=== PATIENT | male | born 1960 | race Two or more races ===

== ENCOUNTER 2020-07-09 06:12 | Day surgery (SDC) | payer BC ==
[~2020-07-09] VITALS: Ht 175.3 cm; Wt 81.6 kg
[2020-07-09] VITALS (8 sets, daily range): BP systolic 114–139; BP diastolic 71–85
[~2020-07-09 06:12] MED LIST: ASPIRIN81 MG ORAL; LIPITOR20 MG ORAL
--- NOTE | 2020-07-09 06:59 | Anethesia Preoperative Eval ---
Anesthesia Pre-op PMH/ROS General Date of Evaluation: Jul 09, 2020 Time of Evaluation: 06:58 Anesthesiologist: jeri ASA Score: ASA 2 Mallampati Score Class I : Soft palate, uvula, fauces, pillars visible Class II: Soft palate, uvula, fauces visible Class III: Soft palate, base of uvula visible Class IV: Only hard plate visible Mallampati Classification: Class II Surgeon: do Diagnosis: colon screening Surgical Procedure: colonoscopy Anesthesia History: none Social History: smoking - nonsmoker Family History: no anesthesia problems Allergies: Coded Allergies: No Known Allergies (Unverified , 07/02/20) Medications: see eMAR Patient NPO?: Yes Past Medical History Cardiovascular: Reports: other - hypercholesterolemia Anesthesia Pre-op Phys. Exam Physician Exam Last Vital Signs Date Time Temp Pulse Resp B/P (MAP) Pulse Ox O2 Delivery O2 Flow Rate FiO2 07/09/20 06:53 Room Air 07/09/20 06:52 97.0 85 17 139/85 96 Constitutional: NAD Neurologic: CN 2-12 intact Cardiovascular: RRR Respiratory: CTA Gastrointestinal: S/NT/ND Airway Exam Mallampati Score: Class II MO: limited Neck: flexible TMD: 2fb ROM: limited Anesthesia Pre-op A/P Labs Microbiology Date/Time Source Procedure Growth Status 07/09/20 06:30 Nasopharynx SARS-CoV-2 RdRp Gene Assay - Final Complete Studies Pre-op Studies: EKG - nsr Risk Assessment & Plan Assessment: asa2 Plan: mac Status Change Before Surgery: No Pre-Antibiotics Drug: Mary Reagan MD Jul 09, 2020 06:59
[2020-07-09] MEDS ORDERED: Midazolam 2mg/2ml Inj IVP PRN (07:00)
[2020-07-09] MEDS ORDERED: LR 1000ml 1,000 ML IVLG SCH (07:00)
[2020-07-09] MEDS ORDERED: fentaNYL 100 mcg/2 mL IV PRN (07:00)
[2020-07-09] MEDS ORDERED: DiphenhydrAMINE 50mg/ml Inj IVP PRN (07:00)
[2020-07-09] MEDS ORDERED: Atropine Inj 1mg/10ml Syr IVP PRN (07:00)
[2020-07-09] MEDS ORDERED: LR 1000ml 1,000 ML IV SCH (08:00)
--- NOTE | 2020-07-09 08:00 | Pre-Procedure Note/Attestation ---
Pre-Procedure Note/Attestation Complete Prior to Procedure Planned Procedure: not applicable Procedure Narrative: colonoscopy Indications for Procedure Pre-Operative Diagnosis: screening Attestation I attest that I discussed the nature of the procedure; its benefits; risks and complications; and alternatives (and the risks and benefits of such alternatives), prior to the procedure, with the patient (or the patient's legal automotive sales representative). I attest that, if there was a reasonable possibility of needing a blood tra nsfusion, the patient (or the patient's legal automotive sales representative) was given the [facility] standardized written summary, pursuant to the [place] Blood Safety Act ([place] Health and Safety Code # 1645, as amended). I attest that I re-evaluated the patient just prior to the surgery and that there has been no change in the patient's H&P, except as documented below: Adolph Biggs MD Jul 09, 2020 08:00
--- NOTE | 2020-07-09 08:01 | Short Stay Surgery H&P ---
History of Present Illness History of Present Illness Chief Complaint screening colon HPI Enmanuel Tucker is a 59 year old male who was admitted on for Screening Patient History Allergies: Coded Allergies: No Known Allergies (Unverified , 07/02/20) PAST MEDICAL HISTORY: (1) Hypercholesteremia Medication History Scheduled Aspirin* (Aspirin*), 81 MG ORAL DAILY, (Reported) Atorvastatin Calcium* (Lipitor*), 20 MG ORAL BEDTIME, (Reported) Review of Systems Cardiovascular: Reports: no symptoms Respiratory: Reports: no symptoms Skeletal: Reports: no symptoms Gastrointestinal: Reports: no symptoms Genitourinary: Reports: no symptoms Neurologic: Reports: no symptoms Endocrine: Reports: no symptoms Hematologic: Reports: no symptoms Physical Exam Vital Signs Last Vital Signs Date Time Temp Pulse Resp B/P (MAP) Pulse Ox O2 Delivery O2 Flow Rate FiO2 07/09/20 06:53 Room Air 07/09/20 06:52 97.0 85 17 139/85 96 Skin: normal HENT: normal Heart: normal Lungs: normal Abdomen: normal Extremities: normal Plan Plan of Care colonoacopy Attestation Are the patient's medical conditions optimized for surgery? Attestation Response: yes Adolph Biggs MD Jul 09, 2020 08:01
[2020-07-09] MEDS ORDERED: LR 1000ml ONE (08:30)
[2020-07-09] MEDS ORDERED: Lidocaine 1% MPF 10mg/ml 5ml ONE (08:30)
--- NOTE | 2020-07-09 09:22 | Endoscopy Procedure Note ---
Endoscopy Procedure Note General Indication for Procedure: screening Procedures Performed: colonoscopy Operative Findings/Diagnosis: 3 polyps Specimen: yes Pt Tolerated Procedure Well: Yes Estimated Blood Loss: none Anesthesia Anesthesiologist: teresa zimmer Anesthesia: MAC Inserted Devices Implant(s) used?: No Quality Quality of Bowel Preparation: Fair Did scope reach the cecum?: Yes Was there any complications?: No GI Core Measures 50 yrs or older w/o bx or poly: No 10yrs. F/U recommended: Yes If not recommended, why?: Above average risk 18 years or older w/prev. colo: No Adolph Biggs MD Jul 09, 2020 09:22
--- NOTE | 2020-07-09 09:33 | Immediate Post-Op Evaluation ---
Immediate Post-Op Evalulation Immediate Post-Op Evalulation Procedure: colonoscopy w/bx Date of Evaluation: Jul 09, 2020 Time of Evaluation: 09:33 IV Fluids: 550ml lr Blood Products: none Estimated Blood Loss: negligible Blood Pressure Systolic: 117 Blood Pressure Diastolic: 71 Pulse Rate: 63 Respiratory Rate: 18 O2 Sat by Pulse Oximetry: 98 Temperature (Fahrenheit): 97.4 Pain Score (1-10): 0 Nausea: No Vomiting: No Complications none Patient Status: awake, reacts, patent Hydration Status: adequate Drug: Mary Reagan MD Jul 09, 2020 09:33
--- NOTE | 2020-07-09 09:35 | 48 Hour Post Anesthesia Eval ---
Post Anesthesia Evaluation Procedure: colonoscopy w/bx Date of Evaluation: Jul 09, 2020 Time of Evaluation: 09:35 Blood Pressure Systolic: 114 0: 71 Pulse Rate: 66 Respiratory Rate: 18 Temperature (Fahrenheit): 97.4 O2 Sat by Pulse Oximetry: 98 Airway: patent Nausea: No Vomiting: No Pain Intensity: 0 Hydration Status: adequate Cardiopulmonary Status: stable Mental Status/LOC: patient returned to baseline Post-Anesthesia Complications: none Follow-up care needed: N/A Mary Arita MD Jul 09, 2020 09:35
--- NOTE | 2020-07-09 10:00 | Procedure Note ---
DATE OF PROCEDURE: 07/09/2020 SURGEON: Adolph Biggs MD PROCEDURE: Colonoscopy with biopsy. ANESTHESIA: Per Dr. Johns. INSTRUMENT: Olympus adult flexible colonoscope. INDICATIONS: Screening colonoscopy evaluation. REASON FOR PROCEDURE: The procedure, risks, benefits, and possible consequences, including hemorrhage, aspiration, perforation and infection, and alternative treatments, were explained to the patient/legal guardian by Dr. Adolph Biggs and the patient/legal guardian understood and accepted these risks. DESCRIPTION OF PROCEDURE: After informed consent was obtained and patient was adequately sedated, first rectal exam was performed, which was positive for internal hemorrhoids. Then the scope was advanced from the rectum into the cecum documented by appendiceal orifice, ileocecal valve, and right upper quadrant palpation. Quality of prep was good in the left colon, but in the area of the cecum was limited given there was some solid stool. I would say 10% of the right-sided colon was not examined given this prep. Patient had 3 diminutive polyps in the rectosigmoid area, removed with cold biopsy forceps technique. Patient had evidence of moderate to severe left-sided diverticulosis. No obvious diverticulitis. Retroflexion of rectum was performed, which showed evidence of small nonbleeding internal hemorrhoids. SUMMARY OF FINDINGS: 1. Diverticulosis. 2. Three colonic polyps removed, see above for details. 3. Internal hemorrhoids. RECOMMENDATIONS: 1. Follow up path. 2. Recommend repeat colonoscopy in 3 years given 3 polyps. Adolph Biggs M.D. DR: WOLF JOB#: [id number] CC:
== END 2020-07-09 10:30 | disposition home or self-care (01) ==
LOC: GAS 06:12
DX: Z12.11 Encounter for screening for malignant neoplasm of colon (principal); K57.90 Diverticulosis of intestine, part unspecified, without perforation or abscess without bleeding; K63.5 Polyp of colon; K64.8 Other hemorrhoids; E78.00 Pure hypercholesterolemia, unspecified; Z79.82 Long term (current) use of aspirin
CPT/HCPCS: 45380; 94003; J2704; J7120; U0002; 94150